=== PATIENT | male | born 1975 | race Caucasian/White ===

== ENCOUNTER 2021-10-21 07:04 | Day surgery (SDC) | payer MEDICARE, MEDICAID, SELFPAY ==
[2021-10-18 11:24] VITALS: BMI 55.2
--- NOTE | 2021-10-21 06:36 | W.PM.OPSUD ---
Surgery/Procedure H&P Update DATE OF PROCEDURE: October 21, 2021 DATE H&P PERFORMED: 10/12/21 H&P UPDATE INFORMATION: I have reviewed H&P completed within last 30 days, I have examined patient prior to procedure and No changes to prior documentation PREOP DIAGNOSIS: Gerd and screening colonoscopy PRIMARY INDICATION FOR PROCEDURE: The same PLANNED PROCEDURE: Operation Date: 10/21/21 07:30 Proposed Procedures p EGD/Colon 79865 K21.9(Not Applicable) - Benson Strong MD s Colonoscopy 97092 Z12.11(Not Applicable) - Benson Strong MD
--- NOTE | 2021-10-21 07:27 | ANES.PREANE2 ---
Pre-Anesthetic Assessment Pre-Anesthetic Assessment: Height/Weight: Height 1.68 m Weight 155.129 kg Preop Diagnosis: Gerd and screening colonoscopy Proposed Procedure: Operation Date: 10/21/21 07:30 Proposed Procedures p EGD/Colon 70698 K21.9(Not Applicable) - Benson Strong MD s Colonoscopy 36015 Z12.11(Not Applicable) - Benson Strong MD Familial anesthetic complications: none Was Beta Jasbir taken within 24 hours: N/A Was Clonidine taken within 24 hours: N/A Last intake: Solid- Liquids- 10/20/21 1100 Social: Social History: No alcohol and No tobacco Exam: Pre-Anes Outpt Exam: alert, oriented x 3 and clear to auscultation bilaterally Airway: Submandibular: WNL Cervical ROM: WNL MP: 2 Dentition: Chipped Additional comments: minor chips and discoloration to front right tooth. History/ROS: No significant history except as noted Pulmonary: Pulmonary: Asthma and Sleep apnea CV/HEM: CV/HEM: HTN : : Chronic renal Insufficiency Comments: on lasix Hepatic: Comments: fatty liver GI: GI: GERD Metabolic: Metabolic: DM, Hyperlipidemia and Morbid obesity Comments: insulin dependent Musc/skel: Musc/skel: None reported Neuropsych: Neuropsych: None reported Anesthetic Plan: ASA status: 3 Anesthesia: MAC Risk of > 500 ml blood loss (7ml/kg in children): Yes, adequate IV access and fluids planned PFSH Anesthesia PFSH: Medical History Fatty liver GERD (gastroesophageal reflux disease) Family History Other Cancer Diabetes Hypertension Social History Second hand smoke exposure: No Alcohol intake: current Alcohol intake frequency: holidays/special occasions only Household members: family Data Anesthesia Cardiac Studies: No Data to Display
[2021-10-21 07:44] VITALS: BP 179/99; PULSE 98; RESP 20; TEMP 36.7; O2SAT 94
[2021-10-21] MEDS: sodium chloride 0.9% 1,000 ML 30 ML IV (07:50)
[2021-10-21 08:48] VITALS: BP 124/77; PULSE 95; RESP 18; TEMP 36.4; O2SAT 93
[2021-10-21 08:58] VITALS: BP 130/83; PULSE 92; RESP 18; TEMP 36.2; O2SAT 97
[2021-10-21 09:08] VITALS: BP 134/70; PULSE 93; RESP 18; O2SAT 93
--- NOTE | 2021-10-21 14:30 | ANE.PACU2 ---
Inpatient post-anesthesia follow up: Airway intact: Yes Vital signs: Temperature 97.2 F Pulse Rate 93 Respiratory Rate 18 Blood Pressure 134/70 Pulse Oximetry 93 Oxygen Delivery Me thod Room Air Oxygen Flow Rate 5 Fraction of Inspir ed Oxygen Hydration adequate: Yes Nausea and vomiting: No Pain level: 1 Mental status: Baseline
== END 2021-10-21 09:35 | disposition home or self-care (01) ==
PROVIDERS: PCP Internal Medicine; Visit Provider Surgery
PROC: 0DJD8ZZ Inspection of Lower Intestinal Tract, Via Natural or Artificial Opening Endoscopic (ICD-10-PCS; CPT 45378; 2021-10-21 07:30)
PROC: 0DJ08ZZ Inspection of Upper Intestinal Tract, Via Natural or Artificial Opening Endoscopic (ICD-10-PCS; CPT 43235; 2021-10-21 07:30)
DX: Z12.11 Encounter for screening for malignant neoplasm of colon (principal); K21.9 Gastro-esophageal reflux disease without esophagitis; K57.30 Diverticulosis of large intestine without perforation or abscess without bleeding; D13.1 Benign neoplasm of stomach; K29.70 Gastritis, unspecified, without bleeding; I10 Essential (primary) hypertension; E11.9 Type 2 diabetes mellitus without complications; E78.5 Hyperlipidemia, unspecified; E66.01 Morbid (severe) obesity due to excess calories; Z68.43 Body mass index [BMI] 50.0-59.9, adult; Z79.4 Long term (current) use of insulin
CPT/HCPCS: 43251; 88305; 88342; G0121; J2704; J7030

== ENCOUNTER → 2022-02-08 13:22 | Outpatient (BNVA) | payer MEDICARE, MEDICAID, SELFPAY | PROVIDERS: PCP Internal Medicine; Visit Provider Surgery | DX: E66.01 Morbid (severe) obesity due to excess calories (principal); Z68.43 Body mass index [BMI] 50.0-59.9, adult; E11.9 Type 2 diabetes mellitus without complications; K21.9 Gastro-esophageal reflux disease without esophagitis | CPT/HCPCS: 99213 ==